=== PATIENT | male | born 1970 | race Caucasian/White ===

== ENCOUNTER → 2017-03-20 | Outpatient (CLI) | payer BC ==
--- NOTE | 2017-03-20 16:05 | DIAGNOSTIC IMAGING REPORT ---
LEFT KNEE 1 OR 2 VIEWS ROUTINE CLINICAL HISTORY: M25.562 LEFT KNEE PAIN COMPARISON: None. DISCUSSION: No acute fractures are visualized. There are no destructive lesions. There is a tiny dorsal patellar spur. IMPRESSION: Minor degenerative change. No evidence of fracture. No destructive lesions are visualized. Electronically signed by: Lazaro Shannon M.D. 03/20/2017 4:04 PM Dictated Date/Time: 03/20/2017 4:04 PM
== END | disposition home or self-care (01) ==
LOC: C.RAD1850 15:49
PROVIDERS: ATTEND Family Medicine
DX: M25.562 Pain in left knee (principal)